=== PATIENT | female | born 1945 | race Caucasian/White ===

== ENCOUNTER → 2018-09-26 | Outpatient (CLI) | payer MEDICARE, OTHER ==
[~2018-09-26] MED LIST: DOCU-94 PO; DULO60CA PO; FERR-20 PO; IOHEXOL 350 MG/ML 100ML IJ ONE; LEVO100T8 PO; METO25TA5 PO; METOPROLOL TARTRATE 1MG/1ML-5ML VIAL IV ONE; NITROGLYCERIN 0.4 MG SL TAB SL ONE; RANI150C11 PO; SIMV-13 PO; TRIATAB3 PO; WARF1TAB PO; WARF2TAB PO
== END | disposition home or self-care (01) ==
LOC: XYW 08:48
PROVIDERS: ATTEND Specialist
DX: Z53.9 Procedure and treatment not carried out, unspecified reason (principal)

== ENCOUNTER 2018-10-06 06:03 | Day surgery (SDC) | payer OTHER ==
[~2018-10-06] VITALS: Ht 170.2 cm; Wt 131.4 kg
[~2018-10-06 06:03] MED LIST changes: -IOHEXOL 350 MG/ML 100ML IJ ONE; -METOPROLOL TARTRATE 1MG/1ML-5ML VIAL IV ONE; -NITROGLYCERIN 0.4 MG SL TAB SL ONE
[2018-10-06] MEDS ORDERED: LIDOCAINE 2%HCL (LOCAL ANESTH.) INJ 20ML MDV ONE ×2 (07:20→07:52)
[2018-10-06] MEDS ORDERED: fentaNYL CITRATE 100 MCG/2 ML VL ONE (07:26)
[2018-10-06] MEDS ORDERED: MIDAZOLAM HCL 1MG/1ML-2 ML VIAL ONE (07:26)
[2018-10-06] MEDS ORDERED: ANGIOMAX 250 MG VIAL IV ONE (07:26)
[2018-10-06] MEDS ORDERED: SODIUM CHL 0.9% 0 ML ONE (07:27)
[2018-10-06] MEDS ORDERED: IOHEXOL 350 MG/ML 100ML IJ ONE (07:27)
[2018-10-06] MEDS ORDERED: ONDANSETRON HCL 4 MG/2 ML VIAL IV PRN ×2 (08:45→09:00)
[2018-10-06] MEDS ORDERED: HYDROcodone-ACET 5/325MG TAB PO PRN ×2 (08:45→09:00)
[2018-10-06] MEDS ORDERED: ACETAMINOPHEN 500 MG TAB PO PRN ×2 (08:45→09:00)
== END 2018-10-06 10:45 | disposition home or self-care (01) ==
LOC: CATH 06:03
PROVIDERS: ATTEND Specialist
DX: I25.10 Atherosclerotic heart disease of native coronary artery without angina pectoris (principal); I10 Essential (primary) hypertension; E78.5 Hyperlipidemia, unspecified; I48.91 Unspecified atrial fibrillation; Z79.899 Other long term (current) drug therapy; Z98.890 Other specified postprocedural states
CPT/HCPCS: 93454; C1760; C1894; J1644; J2250; J3010; J7030; Q9967; 99152; 99153